=== PATIENT | female | born 1995 | race Caucasian/White ===

== ENCOUNTER 2018-08-11 15:03 | Emergency (ER) | payer OTHER ==
[~2018-08-11] VITALS: Ht 157.5 cm; Wt 55.9 kg
[2018-08-11 16:13] LABS: BASO % 0.6 % (0.0-1.0); EOS # 0.1 10^3/uL (0.0-0.50); EOS % 1.3 % (0.0-3.0); HEMATOCRIT 41.4 % (36.0-47.0); HEMOGLOBIN 13.6 g/dl (12.0-15.5); LYMPH # 1.4 10^3/uL (1.5-6.5); LYMPH % 26.7 % (24.0-44.0); MEAN CORPUSCULAR HEMOGLOBIN 29.1 pg (27.0-33.0); MEAN CORPUSCULAR HGB CONC 32.9 g/dl (32.0-36.5); MEAN CORPUSCULAR VOLUME 88.5 fl (80.0-96.0); MONO # 0.3 10^3/uL (0.0-0.8); NEUTROPHILS # 3.4 10^3/uL (1.8-7.7); NEUTROPHILS % 65.2 % (36.0-66.0); PLATELET COUNT, AUTOMATED 216 10^3/uL (150-450); RED BLOOD COUNT 4.68 10^6/uL (4.00-5.40); WHITE BLOOD COUNT 5.2 10^3/uL (4.0-10.0)
[2018-08-11 16:26] LABS: HCG, SERUM QUALITATIVE NEGATIVE (NEGATIVE)
[2018-08-11 16:31] LABS: ALBUMIN 4.3 GM/DL (3.2-5.2); ALT/SGPT 12 U/L (12-78); BILIRUBIN,DIRECT < 0.1 MG/DL (0.0-0.2); BILIRUBIN,TOTAL 0.3 MG/DL (0.2-1.0); BLOOD UREA NITROGEN 11 MG/DL (7-18); CALCIUM LEVEL 8.8 MG/DL (8.5-10.1); CARBON DIOXIDE LEVEL 25 MEQ/L (21-32); CHLORIDE LEVEL 108 MEQ/L (98-107); CK-MB VALUE MASS < 1.0 NG/ML (<3.6); CPK CREATINE PHOSPHOKINASE 72 U/L (26-192); CREATININE FOR GFR 0.75 MG/DL (0.55-1.30); GLOMERULAR FILTRATION RATE > 60.0 (>60); GLUCOSE, FASTING 96 MG/DL (70-100); MB/CK RELATIVE INDEX 1.39 (< OR =4); POTASSIUM SERUM 3.7 MEQ/L (3.5-5.1); SODIUM LEVEL 139 MEQ/L (136-145); THYROID STIMULATING HORMONE 0.748 uIU/ML (0.358-3.740); TOTAL PROTEIN 7.9 GM/DL (6.4-8.2); TROPONIN I < 0.02 NG/ML (< 0.10)
[2018-08-11] MEDS ORDERED: ISOVUE-370 76% 125ML VIAL (Q9967 PER ML) As Ordered ONE (16:55)
--- NOTE | 2018-08-11 16:57 | REP ---
Oral chest x-ray: Single view. History: Chest pain. Findings: The lungs are well inflated and clear. Pleural angles are sharp. Heart size is normal. EKG monitoring electrodes are seen. Pulmonary vasculature is not increased. Impression: Negative portable chest x-ray. Electronically Signed by Milind Wheeler MD 08/11/2018 07:56 P
--- NOTE | 2018-08-11 17:43 | REP ---
CT ANGIOGRAM CHEST: TECHNIQUE: Axial contrast enhanced images from the thoracic inlet to the upper abdomen using 100 mL Isovue 370 intravenous contrast material with multiplanar reformations. The pulmonary arteries demonstrate no filling defect and no evidence of pulmonary embolism. There is no thoracic aortic aneurysm or dissection. Heart is normal in size. There is no mediastinal, hilar or chest wall lymphadenopathy. There is no pleural or pericardial effusion. The lungs show no infiltrate. The visualized upper abdominal structures are unremarkable. IMPRESSION: No CT evidence of pulmonary embolism or other acute finding. Electronically Signed by Luis Tsang MD 08/12/2018 01:27 P
[2018-08-11 19:03] VITALS: BP 113/62
--- NOTE | 2018-08-12 13:46 | ECGEPIP ---
Stationary ECG Study [facility] - ED Test Date: 2018-08-11 Pat Name: LYNNE RODRÍGUEZ Department: Room: - Gender: F Client Development Manager: [facility] : 1995 Requested By: SAUMYA Nix Order Number: [id number] Reading MD: Marine Khalil Measurements Intervals [place] Rate: 97 P: 53 IA: 124 QRS: 59 QRSD: 89 T: 57 QT: 346 QTc: 440 Interpretive Statements SINUS RHYTHM NO PRIOR FOR COMPARISON Electronically Signed On 08-12-2018 13:46:04 EDT by Marine Khalil
== END 2018-08-11 19:04 | disposition home or self-care (01) ==
LOC: M ED 15:03
DX: R00.2 Palpitations (principal); F43.9 Reaction to severe stress, unspecified
CPT/HCPCS: 71045; 71275; 80048; 80076; 82550; 82553; 84443; 84484; 84703; 85025; 85379; 93005; 93041; 94760; 99285; Q9967

== ENCOUNTER → 2019-03-30 | Outpatient (REF) | payer OTHER | LOC: M SFHCPLAZ 15:27 | PROVIDERS: ATTEND Obstetrics & Gynecology | DX: N30.00 Acute cystitis without hematuria (principal) | CPT/HCPCS: 81002; 87086; G0463 ==